=== PATIENT | male | born 1950 | race American Indian/Alaskan Native ===

== ENCOUNTER 2020-12-23 07:55 | Day surgery (SDC) | payer MEDICARE, OTHER ==
[~2020-12-23] VITALS: Ht 175.3 cm; Wt 110.5 kg
[~2020-12-23 07:55] MED LIST: BACLOFEN10 MG PO; CARISOPRODOL350 MG PO; FLEXERIL10 MG PO; GABAPENTIN300 MG PO; MAGNESIUM100 MG PO; MORPHINE SULFAT15 MG PO; NORCO 10-325 T1 EACH PO; OXYCODONE HCL15 MG PO; OXYCONTIN10 MG PO; ULTRAM50 MG PO
[2020-12-23] MEDS ORDERED: XARELTO10 MG PO (11:01)
[2020-12-23] MEDS ORDERED: GABAPENTIN300 MG PO (11:02)
[2020-12-23] MEDS ORDERED: OXYCODONE HCL5 MG PO (11:02)
[2020-12-23] MEDS ORDERED: ASPIRIN EC325 MG PO (11:02)
[2020-12-23] MEDS ORDERED: HEALTHYLAX17 GM PO (11:02)
[2020-12-23] MEDS ORDERED: DICLOFENAC SODI75 MG PO (11:02)
--- NOTE | 2020-12-23 12:07 | NUR ---
12/23/20 1207 Anya Sena 1057 PT ARRIVED IN PACU NON RESPONSIVE TO NOXIOUS STIMULI WITH OPA IN PLACE. 1113 PT REACTIVE. OPA REMOVED. 1120 RN HELPED PT TURN NERVE STIMULATOR ON. 1130 BILAT HEARING AIDES RETURNED TO PT. C/O L KNEE ITCHING. CLEANED SKIN ABOVE DRSG WITH BABY WIPES. 1135 PT STATES "MY ITCHING FEELS BETTER." 1150 TO DS. REPORT GIVEN TO RN.
--- NOTE | 2020-12-23 12:42 | NUR ---
RETURNS TO DAY SURGERY AT 1150. DENIES NAUSEA. MEDICATED FOR PAIN PER EMAR. CRACKERS, PUDDING, AND WATER GIVEN. PT IN TO EVALUATE PT AT 1230. PLAN ON PT TREATMENT AND EXERCISES CLOSER TO 1:30 OR 2. PT SITTING IN BED DOING FOOT PUMPS PER PT RECOMMENDATION. NOW REPORTS LESS CRAMPING WITH MOVEMENT.
--- NOTE | 2020-12-23 13:20 | NUR ---
PHYSICAL THERAPY IN ROOM TO WORK WITH PT. STEADY ON FEET WITH 2 PERSON STAND BY ASSIST AND WALKER FOR AMBULATION TO BR. REPORTS REDUCED PAIN WITH STANDING AND MOVING.
--- NOTE | 2020-12-23 13:28 | OR ---
[facility] [address] [place], [place] [address] Signed DATE OF OPERATION: 12/23/2020 SURGEON: Anne Floyd MD PREOPERATIVE DIAGNOSIS: Degenerative joint disease, severe left knee. POSTOPERATIVE DIAGNOSIS: Degenerative joint disease, severe left knee. PROCEDURE PERFORMED: Left total knee arthroplasty with Fran. RN CARDIOVASCULAR: None. ANESTHESIA: Spinal. BLOOD LOSS: 150 mL. TOURNIQUET TIME: Zero. IMPLANTS: Chris Triathlon size 6, 11 mm polyethylene and a 38 mm patella. BRIEF HISTORY: Eduard is a 70-year-old gentleman with pain in his knee. We treated him for years with braces and injections without substantial relief. Risks and benefits of operative treatment were discussed with him and he elected to proceed. DESCRIPTION OF PROCEDURE: Once consent was obtained, he was taken to the operating room after adequate anesthesia, he was placed on operating room table, all downside pressure points were well padded. The left leg was prepped and draped in a standard sterile fashion. The knee was approached through standard anterior midline incision, carried through skin and subcutaneous tissue. A low mid vastus approach was taken through the arthrotomy and split the vastus proximally. All bleeders were cauterized as we went. The patella was Electronically Signed By: ANNE FLOYD MD 12/23/20 1328 PATIENT NAME: MARCIN MUIR OPERATIVE REPORT DATE OF : 52 REPORT #: [id number] PHYSICIAN: ANNE FLOYD MD PCP: BEVERLY MARIA REPORT IS CONFIDENTIAL AND NOT TO BE RELEASED WITHOUT AUTHORIZATION [facility] [address] [place], [place] [address] Signed mobilized laterally and the infrapatellar fat pad was excised. The MCL was elevated with a sleeve around the posteromedial corner. Anterior horns of menisci were transected as was the ACL. Checkpoints for the Fran system were placed in the proximal tibia and medial femoral condyle. The two Schanz pins for the femoral computer ray were placed in the medial femoral condyle. The tibial was placed in the anteromedial tibia one handbreadth below the tibial tubercle. Once these were well fitted, the leg was registered with the computer followed by the fine anatomic points of the knee. The verus valgus testing was then undertaken and his knee was quite well balanced already. The position of the components unchanged. The robot was then brought in and the straight cuts were made with care taken to protect the patellar tendon and MCL. The blade was then switched to angle blade and the 2 angle cuts were made. All bony pieces were removed and the meniscal remnants were removed. The posterior osteophytes removed off the femur, but no release was performed. The trials were then positioned and knee was stable throughout. The patella was cut sized and drilled for a 38 mm patella. The drill holes for the distal femur were placed and the keel punch was used for the proximal tibia. The bone was in good condition, so we elected to go with a non-cemented prosthesis. The components were obtained and the tibia was impacted in position first followed by the polyethylene. The femur was impacted into position. The knee was extended and nicely loaded. The patella was clamped into position. The knee was pulse lavaged at intervals throughout the procedure. A total of 3 L of normal saline were used. The knee was soaked with dilute iodine in the middle of the procedure. The On-Q pain pump was placed percutaneously from the suprapatellar pouch into the adductor canal. The arthrotomy was then closed using #2 Stratafix. He still had some oozing, so I placed 1 g TXA intra-articularly. Subcutaneous tissue was closed with #0 Stratafix, and skin with beti. Wound was dressed with an Acticoat dressing, ABD and Jozef wrap. He tolerated the procedure well. All sponge, needle, and instrument counts were correct. Anne Floyd MD BA/MODL /[id number] Copies: Electronically Signed By: ANNE FLOYD MD 12/23/20 1328 PATIENT NAME: MARCIN MUIR OPERATIVE REPORT DATE OF : 52 REPORT #: [id number] PHYSICIAN: ANNE FLOYD MD PCP: BEVERLY MARIA REPORT IS CONFIDENTIAL AND NOT TO BE RELEASED WITHOUT AUTHORIZATION [address] [place] [address] Signed ~ Electronically Signed By: ANNE FLOYD MD 12/23/20 1328 PATIENT NAME: MARCIN MUIR AMANDA OPERATIVE REPORT DATE OF : 52 REPORT #: [id number] PHYSICIAN: ANNE FLOYD MD PCP: BEVERLY MARIA REPORT IS CONFIDENTIAL AND NOT TO BE RELEASED WITHOUT AUTHORIZATION
--- NOTE | 2020-12-23 13:55 | NUR ---
DURING EARLIER TRIP TO BATHROOM, PT VOIDED 250ML [place] URINE
--- NOTE | 2020-12-23 14:17 | NUR ---
PT RETURNS TO DAY SURGERY AT 1415 WITH PHYSICAL THERAPY. REPORTS INCREASE CRAMPING TYPE PAIN ON RETURN TO BED. CRYO CUFF AND SCD'S ON.
== END 2020-12-23 14:40 | disposition home or self-care (01) ==
LOC: DS 07:55
PROVIDERS: ATTEND Specialist
PROC: 0SRD0JA Replacement of Left Knee Joint with Synthetic Substitute, Uncemented, Open Approach (ICD-10-PCS; principal; 2020-12-23 09:00)
DX: M17.12 Unilateral primary osteoarthritis, left knee (principal); G89.18 Other acute postprocedural pain; M19.042 Primary osteoarthritis, left hand; F17.210 Nicotine dependence, cigarettes, uncomplicated
CPT/HCPCS: 64447; 76942; C1713; C1776; J0690; J1100; J2001; J2250; J2704; J2795; J3010; J7121

== ENCOUNTER 2023-01-18 08:49 | Emergency (ER) | payer MEDICARE, OTHER ==
[~2023-01-18] VITALS: Ht 175.3 cm; Wt 110.2 kg
[~2023-01-18 08:49] MED LIST changes: +ASPIRIN EC325 MG PO; +DICLOFENAC SODI75 MG PO; +HEALTHYLAX17 GM PO; +OXYCODONE HCL5 MG PO; +XARELTO10 MG PO
--- OUTSIDE RECORDS SUMMARY | 2023-01-18 08:52 | XMS ---
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 Louis has no Care Guidelines for this patient. Rudy VISIT COUNT (12 MO.) 1 KEE Ptots TOTAL 1 NOTE: Visits indicate total known visits. ED/C VISIT TRACKING (12 MO.) 01/18/2023 08:50 KEE [facility] TYPE: Emergency COMPLAINT: - R SIDE NUMBNESS INPATIENT VISIT TRACKING (12 MO.) No inpatient visits to display in this time frame [email or web address]
[2023-01-18 14:13] VITALS: BP 142/79
--- NOTE | 2023-01-18 18:25 | EKG ---
[facility] [address] [facility] [place] [address] Signed Normal sinus rhythm Normal ECG No previous ECGs available Confirmed by Mason Sims MD () on 01/18/2023 6:24:45 PM Electronically Signed By: MASON SIMS MD 01/18/23 182 PATIENT NAME: MARCIN MUIR Electrocardiogram DATE OF : 52 PHYSICIAN: MASON SIMS MD REPORT #: [id number] REPORT IS CONFIDENTIAL AND NOT TO BE RELEASED WITHOUT AUTHORIZATION
== END 2023-01-18 14:13 | disposition home or self-care (01) ==
LOC: ED 08:49
DX: G45.9 Transient cerebral ischemic attack, unspecified (principal); F17.200 Nicotine dependence, unspecified, uncomplicated; Z79.01 Long term (current) use of anticoagulants; Z79.82 Long term (current) use of aspirin
CPT/HCPCS: 36415; 70450; 70496; 70498; 70551; 71045; 80053; 85025; 85610; 85730; 93005; 93010; 99284-25; Q9967